=== PATIENT | female | born 1985 | race African-American/Black ===

== ENCOUNTER 2021-05-21 19:13 | Emergency (ER) | payer OTHER ==
[~2021-05-21] VITALS: Ht 162.6 cm; Wt 83.9 kg
--- NOTE | ~2021-05-21 | EMS ---
[facility] [address] [place] [address] EMS Patient Care Report Name: LANEY HOPE Room #: DEP COSME Da Silva#: [id number] Admission: 05/21/21 Attend Phys: Discharge: 05/22/21 Date of : 81 Report #: [id number] THIS REPORT FOR: //name// Report Transmitted: 05/25/2021 09:55 EMS Care Summary [place], [place]/[facility] Incident [id number] @ 05/21/2021 18:45 Incident Location [address] [place] [address] / [place] [address] Patient LANEY HOPE Female, 35 Years 1985 Patient Address unknown Chief Complaint altered mentation Disposition Transported No Lights/[place] Dispatch Reason Overdose/Poisoning/Ingestion Transported To [facility] Narrative Initially dispatched to meet [place] on scene of an overdose. Upon EMS arrival patient was found sitting on a bench, hands cuffed behind her back, swaying, in and out of consciousness. Officers report finding the patient like this and that she was unable to stand on her own. Patient was assisted onto the stretcher, secured, and loaded into the ambulance. When asked if patient was on any drugs or alcohol, she mouthed the word "wet". Patient was transported to [facility] without incident. Full report was given to RN prior to signing this document. Initial Vitals @18:55P: 88,R: 16,BP: 102/70,Pain: 0/10,GCS: 14,Glucose: 133,SpO2: 100,Revised Trauma: 12, [facility] [address] [place] [address] EMS Patient Care Report Name: LANEY HOPE Room #: DEP COSME Da Silva#: [id number] Admission: 05/21/21 Attend Phys: Discharge: 05/22/21 Date of : 81 Report #: [id number] @19:03P: 72,R: 16,BP: 122/84,GCS: 14,SpO2: 99,Revised Trauma: 12, Assessments @18:47MENTAL:Combative,Confused,SKIN:No Abnormalities,HEENT:Head/Face: No Abnormalities,Eyes: No Abnormalities,Neck/Airway: No Abnormalities,LUNG SOUNDS:ABDOMEN:PELVIS//GI:EXTREMITIES:Left Arm: No Abnormalities,Right Arm: No Abnormalities,Left Leg: No Abnormalities,Right Leg: No Abnormalities,PULSE:NEURO:Weakness Right-Sided,Weakness Left-Sided,Slurred Speech, Impression Altered Mental Status Procedures @18:47ALS AssessmentResponse: UnchangedSucceeded Timeline 18:44,Call Received 18:44,Dispatch Notified 18:45,Dispatched 18:45,En Route 18:47,On Scene 18:47,At Patient 18:47,ALS Assessment,Response: UnchangedSucceeded, 18:55,BP: 102/70 M,PULSE: 88,RR: 16 R,SPO2: 100 Ox,ETCO2: ,B,PAIN: 0,GCS: 14, 18:58,Depart Scene 19:03,BP: 122/84 M,PULSE: 72,RR: 16 R,SPO2: 99 Ox,ETCO2: ,BG: ,PAIN: ,GCS: 14, 19:10,At Destination 19:17,Call Closed Disclaimer v1.1 Copyright 2020 [employer] This EMS Care Summary contains data elements from the applicable legal record (which may be displayed differently). It is designed to provide pertinent information for the following purposes: continuity of care, clinical quality, and state data reporting. The complete legal record is available to ED staff and administrators of the receiving hospital in [employer] Patient Tracker. All data is provided "as is."
[2021-05-21 19:46] LABS: ABSOLUTE NEUTROPHILS 2.4 thou/uL (1.4-8.2); BASOPHILS 0.4 % (0.0-2.0); EOSINOPHILS 0.2 % (0.0-3.0); HEMATOCRIT 37.9 % (37.0-47.0); HEMOGLOBIN 13.4 gm/dL (12.0-15.0); LYMPHOCYTES 43.5 % (24.0-44.0); MCH 33.9 pg (26.0-34.0); MCHC 35.3 g/dL (28.0-37.0); MCV 95.9 fL (80.0-100.0); MONOCYTES 5.6 % (1.0-8.0); PLATELET COUNT 395 thou/uL (150-400); POLYS 50.3 % (36.0-66.0); RBC 3.95 mil/uL (4.20-5.00); RDW 13.4 % (10.5-14.5); WBC 4.8 thou/uL (4.0-11.0)
[2021-05-21 20:01] LABS: CALCIUM 8.9 mg/dL (8.5-10.1); CREATININE 0.7 mg/dL (0.6-1.0); POTASSIUM 3.5 mmol/L (3.5-5.1)
[2021-05-22 05:15] VITALS: BP 132/72
== END 2021-05-22 05:30 | disposition home or self-care (01) ==
LOC: ER 19:13
PROVIDERS: Nurse Practitioner
DX: F15.10 Other stimulant abuse, uncomplicated (principal); F10.129 Alcohol abuse with intoxication, unspecified